=== PATIENT | male | born 1955 | race Asian ===

== ENCOUNTER 2021-12-13 09:06 | Outpatient (AMB) | payer MEDICARE, SELFPAY ==
[2021-12-13 09:17] VITALS: BP 126/81; PULSE 80; TEMP 36.6; BMI 28.5
--- NOTE | 2021-12-13 09:17 | UROVISIT ---
Intake Vital Signs 12/13/21 09:17 Height 1.65 m Height Method Stated Weight 77.678 kg Weight Measurement Method Standing Scale BMI 28.5 Temp 98 F Temp Source Temporal Artery Scan Pulse 80 Pulse Source Monitor BP 126/81 Blood Pressure Source Automatic Cuff Blood Pressure Location Left Upper Arm Position Sitting Intake Visit Reasons: Uro Office Visit/[facility] SURGERY FOLLOW UP [employer] Required: No Is patient in pain?: No Allergy Allergies latex Allergy (Verified 12/13/21 09:18) hives Home Meds Medication Reconciliation dapagliflozin 5 mg tablet (Farxiga) 5 mg PO QDAY 10/11/21 [History Confirmed 12/13/21] ezetimibe 10 mg tablet (Zetia) 10 mg PO QDAY 10/11/21 [History Confirmed 12/13/21] hydrocodone 10 mg-acetaminophen 325 mg tablet 1 tab PO QHS 10/11/21 [History Confirmed 12/13/21] losartan 50 mg tablet 50 mg PO QDAY 10/11/21 [History Confirmed 12/13/21] modafinil 200 mg tablet 200 mg PO QAM PRN 10/11/21 [History Confirmed 12/13/21] pioglitazone 30 mg tablet 30 mg PO QDAY 10/11/21 [History Confirmed 12/13/21] rosuvastatin 20 mg tablet 20 mg PO QDAY 10/11/21 [History Confirmed 12/13/21] tadalafil 5 mg tablet 5 mg PO QDAY PRN 10/11/21 [History Confirmed 12/13/21] Nurse Note: Present with Dr Mitchell in exam room. Catheter removed by Dr Mitchell at this visit. Patient given lab slip to have PSA done in 2 months. mvp Fall Screening Do you have a fear of falling?: No Have you had a fall in the last 2 months?: No Do you use an assistive device for ambulation?: No Current Vital Signs Height Height Method Weight Weight Measurement Method Body Mass Index Temperature Temperature Source 1.65 m Stated 77.678 kg Standing Scale 28.5 98 F Temporal Artery Scan 12/13/21 09:17 12/13/21 09:17 12/13/21 09:17 12/13/21 09:17 12/13/21 09:17 12/13/21 09:17 12/13/21 09:17 Pulse Rate Pulse Source Blood Pressure Blood Pressure Source Blood Pressure Location Blood Pressure Position 80 Monitor 126/81 Automatic Cuff Left Upper Arm Sitting 12/13/21 09:17 12/13/21 09:17 12/13/21 09:17 12/13/21 09:17 12/13/21 09:17 12/13/21 09:17 Office Procedures Uro DC Catheter DC Catheter Date Urinary Catheter Removed: 12/13/21 Time Urinary Catheter Removed: 11:36 Urinary Catheter Intact After Removal: Yes Uro Level of Care Nursing/Assessment/Reassessment Patient Status: Established Patient Nursing Assessment/Reassessment: Update [facility] data in EMR, Vital Signs and Medication Reconciliation Coordination of Care: Comp Pt/Fam Ed for care and Ref for ancillary service Miscellaneous Interventions: Phys Asssit w/procedure Established Patient Point Assignment: 95 Established Patient Point Charge: EP Level 3 (80-115) Procedure IM Injection: No Transrectal Ultrasound: No Urology Clinic Office Visit Office Visit Date of visit:: December 13, 2021 09:06 Allergies & Home Medications: Allergies No Known Allergies Allergy (Verified 10/11/21 14:20) Visit: Reason for visit: [] Office Visit findings: []
--- NOTE | 2021-12-16 06:45 | URONOTEN_ITS ---
RE: JOHANNA APODACA : 1955 DATE: 12/13/2021 CHIEF COMPLAINT: Prostate cancer, status post robotic-assisted radical prostatectomy and bilateral pelvic lymph node dissection. HISTORY OF PRESENT ILLNESS: Gayla is a 65-year-old gentleman. He had elevated PSA of 4.17. He had MRI ultrasound fusion biopsy done at [facility]. This is 1 week postop. The patient has done very well. His EUNICE drain output is 25 mL in 24 hours. He had cystogram. There was no extravasation identified. I removed his EUNICE drain. I removed his catheter. Post-catheter removal instructions were given to the patient. Pathology report came back as 1. Multiple prostatic adenocarcinoma, acinar type, Zoey score 4+4=8 (G4 involving 6-10% of the prostate gland). 2. G4 is 70% of the carcinoma and extensive cribriform G4 present. 3. Extraprostatic extension present in the region of left posterior mid and left posterior base of the prostate gland. 4. Perineural invasion present. No lymphovascular invasion was present. Pathological stage is PT3a N0 Mx. Bladder neck invasion not identified, seminal vesicle invasion not identified, lymphovascular invasion was not identified. Margins, all margins negative for invasive carcinoma. Report of this was given to Dr. Apodaca discussed with him in great detail. Recommendation is PSA in 2 months. Reappointment in 2 months. DT: 16:42:29 TT: 21:58:00 Ref: - TID: [id number]
== END 2021-12-13 11:36 | disposition home or self-care (01) ==
LOC: HODURO 09:06
PROVIDERS: Visit Provider Urology